=== PATIENT | female | born 1995 | race Caucasian/White ===

== ENCOUNTER 2018-11-11 15:37 | Emergency (ER) | payer OTHER ==
[2018-11-11 15:44] VITALS: O2SAT 100
[2018-11-11 16:34] LABS: SQUAMOUS EPITHIAL 4 /hpf (0-5); URINE BACTERIA FEW (<OCC); URINE BILIRUBIN NEGATIVE (NEGATIVE); URINE BLOOD NEGATIVE (NEGATIVE); URINE CLARITY Clear (Clear); URINE COLOR Amber (YELLOW); URINE GLUCOSE (UA) NORMAL (Normal); URINE HYALINE CAST 0-2 /lpf (0-2); URINE LEUKOCYTE ESTERASE NEG Leu/uL (Negative); URINE PROTEIN NEGATIVE (NEGATIVE); URINE UROBILINOGEN NORMAL mg/dL (0.2-1.0)
--- NOTE | 2018-11-11 16:43 | C.PDOC ---
History Of Present Illness 22 y/o female, with no medical problems, comes in complaining of sharp abdominal pain that has been on and off for the past month, which has worsened yesterday. She notes that it would radiate to her chest but no SOB. Patient reports she had fever, chills, and an episode of vomiting yesterday but none today. She denies diarrhea. LMP was 10/30/18. Last bowel movement this morning. Patient states she took Tums for the abdominal pain with no relief. Time Seen by Provider: 11/11/18 16:16 Chief Complaint (Nursing): Abdominal Pain History Per: Patient History/Exam Limitations: no limitations Onset/Duration Of Symptoms: Days Current Symptoms Are (Timing): Still Present Past Medical History Reviewed: Historical Data, Nursing Documentation, Vital Signs Vital Signs: Last Vital Signs Temp 97.5 F L 11/11/18 15:41 Pulse 96 H 11/11/18 15:41 Resp 17 11/11/18 15:41 BP 105/74 11/11/18 15:41 Pulse Ox 100 11/11/18 15:41 Family History: States: No Known Family Hx - Social History Hx Alcohol Use: No Hx Substance Use: No - Immunization History Hx Tetanus Toxoid Vaccination: (unk) Hx Influenza Vaccination: No Hx Pneumococcal Vaccination: (unk) Review Of Systems Except As Marked, All Systems Reviewed And Found Negative. Constitutional: Negative for: Fever, Chills Respiratory: Negative for: Shortness of Breath Gastrointestinal: Positive for: Abdominal Pain. Negative for: Nausea, Vomiting, Diarrhea Genitourinary: Negative for: Dysuria, Hematuria, Vaginal Discharge, Vaginal Bleeding Neurological: Negative for: Weakness, Numbness Physical Exam - Physical Exam Appears: Non-toxic, No Acute Distress Skin: Warm, Dry Head: Atraumatic, Normacephalic Eye(s): bilateral: PERRL, EOMI, Other (conjunctiva clear) Oral Mucosa: Moist Neck: Supple Chest: Symmetrical Cardiovascular: Rhythm Regular (tachycardic), No Murmur, Other (Normal S1,S2) Respiratory: No Rales, No Rhonchi, No Wheezing, Other (CTA bilaterally) Gastrointestinal/Abdominal: Soft, Tenderness (mild tenderness to deep palpation to suprapubic region and epigastrium), No Guarding, No Rebound Back: No CVA Tenderness Extremity: Bilateral: Atraumatic, Normal Color And Temperature, Other (no cyanosis or edema) Pulses: Left Dorsalis Pedis: Normal, Right Dorsalis Pedis: Normal Neurological/Psych: Oriented x3, Normal Speech, Normal Motor (5/5 motor strength), Normal Sensation ED Course And Treatment - Laboratory Results Lab Results: Urine Color Kimi (YELLOW) 11/11/18 16:25 Urine Clarity Clear (Clear) 11/11/18 16:25 Urine pH 5.0 (5.0-8.0) 11/11/18 16:25 Ur Specific [place] 1.024 (1.003-1.030) 11/11/18 16:25 Urine Protein Negative mg/dL (NEGATIVE) 11/11/18 16:25 Urine Glucose (UA) Normal mg/dL (Normal) 11/11/18 16:25 Urine Ketones Trace mg/dL (NEGATIVE) 11/11/18 16:25 Urine Blood Negative (NEGATIVE) 11/11/18 16:25 Urine Nitrate Positive (NEGATIVE) H 11/11/18 16:25 Urine Bilirubin Negative (NEGATIVE) 11/11/18 16:25 Urine Urobilinogen Normal mg/dL (0.2-1.0) 11/11/18 16:25 Ur Leukocyte Esterase Neg Ky/uL (Negative) 11/11/18 16:25 Urine WBC (Auto) 4 /hpf (0-5) 11/11/18 16:25 Urine RBC (Auto) 1 /hpf (0-3) 11/11/18 16:25 Ur Squamous Epith Cells 4 /hpf (0-5) 11/11/18 16:25 Urine Bacteria Few (<OCC) H 11/11/18 16:25 Hyaline Casts 0-2 /lpf (0-2) 11/11/18 16:25 O2 Sat by Pulse Oximetry: 100 (RA) Pulse Ox Interpretation: Normal Medical Decision Making Medical Decision Making: Plan: --UA --Bactrim PO Disposition Counseled Patient/Family Regarding: Studies Performed, Diagnosis, Need For Followup - Disposition Referrals: Trung Valero, BRIAN, LITERATURE TEACHER [Advanced Practice Nurse] - Disposition: HOME/ ROUTINE Disposition Time: 16:43 Condition: GOOD Additional Instructions: LYUBOV GARCÍA, thank you for letting us take care of you today. Your provider was Irene Allan MD and you were treated for ABD PAIN/DIZZY/WEAK. The emergency medical care you received today was directed at your acute symptoms. If you were prescribed any medication, please fill it and take as directed. It may take several days for your symptoms to resolve. Return to the Emergency Department if your symptoms worsen, do not improve, or if you have any other problems. Please contact your doctor in 1-2 days for a follow up appointment. Bring any pa perwork you were given at discharge with you along with any medications you are taking to your follow up visit. Our treatment cannot replace ongoing medical care by a primary care provider outside of the emergency department. Thank you for allowing the [facility] team to be part of your care today. Prescriptions: Sulfamethoxazole/Trimethoprim [Bactrim DS 800 mg-160 mg] 1 tab PO BID #14 tab Instructions: Urinary Tract Infection, Adult (DC) Forms: [employer]ination Media (Guatemalan), General Discharge Instructions - POA Present On Arrival: None - Clinical Impression Clinical Impression: UTI (urinary tract infection) - Scribe Statement The provider has reviewed the documentation as recorded by the Lina Alston Provider Attestation: All medical record entries made by the Lina were at my direction and personally dictated by me. I have reviewed the chart and agree that the record accurately reflects my personal performance of the history, physical exam, medical decision making, and the department course for this patient. I have also personally directed, reviewed, and agree with the discharge instructions and disposition.
[2018-11-11] MEDS ORDERED: Tmp-Smz 800 mg-160 mg DS Tab PO STA (16:45)
[2018-11-11] MEDS ORDERED: Tmp-Smz 800 mg-160 mg DS Tab ONE (16:56)
[2018-11-11 17:02] VITALS: BP 104/67; PULSE 83; RESP 18; TEMP 98
== END 2018-11-11 17:03 | disposition home or self-care (01) ==
LOC: C.ER 15:37
DX: N39.0 Urinary tract infection, site not specified (principal)